=== PATIENT | male | born 1970 | race Two or more races ===

== ENCOUNTER 2019-12-12 12:41 | Emergency (ER) | payer MEDICAID ==
[~2019-12-12] VITALS: Ht 180.3 cm; Wt 110.7 kg
[2019-12-12] MEDS ORDERED: IBUPROFEN 800 MG TAB PO ONE (17:00)
[2019-12-12] MEDS ORDERED: KETOROLAC TROMETH 60MG/2ML VIAL IM ONE (17:15)
[2019-12-12 17:33] VITALS: BP 176/95
== END 2019-12-12 17:35 | disposition home or self-care (01) ==
LOC: ER 12:41
DX: S01.91XA Laceration without foreign body of unspecified part of head, initial encounter (principal); W00.0XXA Fall on same level due to ice and snow, initial encounter; Y93.89 Activity, other specified; Y92.89 Other specified places as the place of occurrence of the external cause; Y99.8 Other external cause status
CPT/HCPCS: 70450; 70486; 99284; J1885